=== PATIENT | male | born 2000 | race Caucasian/White ===

== ENCOUNTER 2018-06-02 12:54 | Emergency (ER) | payer BC, OTHER ==
[2018-06-02] MEDS ORDERED: predniSONE 20 MG TAB PO ONE (13:11)
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
[2018-06-02] MEDS ORDERED: IBUPROFEN 600 MG TAB PO ONE (13:12)
[2018-06-02 14:36] VITALS: BP 113/60
== END 2018-06-02 14:35 | disposition home or self-care (01) ==
DX: R51 Headache (principal)
CPT/HCPCS: J7512